=== PATIENT | female | born 2000 | race Caucasian/White ===

== ENCOUNTER 2020-07-17 11:04 | Observation (INO) | payer OTHER ==
[2020-07-17 11:46] LABS: #Monocytes 1.5 10x3/uL (0.0-1.1); %Basophils 0.3 % (0.0-2.0); %Eosinophils 0.2 % (0.0-6.0); %Lymphocytes 17.7 % (18.0-47.0); %Monocytes 14.4 % (0.0-10.0); %Neutrophils 67.1 % (40.0-75.0); Hemoglobin 14.4 g/dL (12.0-15.5); Mean Corpuscular HGB CONC 32.8 g/dL (32.0-36.0); Mean Corpuscular Hemoglobin 27.4 pg (27.0-33.0); Mean Corpuscular Volume 83.5 fl (81.6-98.3); Mean Platelet Volume 12.8 fl (7.4-10.4); Platelet Count 234 10x3/uL (150-450); RBC Distribution Width 15.2 % (11.5-14.5); Red Blood Cell (RBC) Count 5.26 10x6/uL (3.90-5.03); White Blood Cell (WBC) Count 10.5 10x3/uL (3.5-10.5)
[2020-07-17 12:00] LABS: ALT (SGPT) 386 U/L (8-55); AST (SGOT) 190 U/L (5-34); Acetaminophen Less than 6.0 mcg/mL (10.0-30.0); Albumin 4.4 g/dL (3.5-5.0); Alcohol Less than 10 mg/dL (Less than 10); Alkaline Phosphatase 84 U/L (40-100); Anion Gap 20 mmol/L (10-20); BUN (Urea Nitrogen) 7 mg/dL (7.0-18.7); Bilirubin, Total 4.4 mg/dL (0.2-1.2); Calc. Creatinine Clearance 0 mL/min (70-130); Calcium 10.2 mg/dL (7.8-10.44); Carbon Dioxide 25 mmol/L (22-29); Chloride 91 mmol/L (98-107); Globulin 3.4 g/dL (2.4-3.5); Glucose 100 mg/dL (70-105); Lipase 18 U/L (8-78); Protein, Total 7.8 g/dL (6.0-8.3); Salicylate Less than 8.0 mg/dL (15.0-30.0); Sodium 133 mmol/L (136-145)
[2020-07-17 12:07] LABS: Potassium 2.5 mmol/L (3.5-5.1)
[2020-07-17] MEDS ORDERED: Metoclopramide HCl 10 MG/2 ML VIAL ONE (12:14)
[2020-07-17 12:17] LABS: Thyroid Stimulating Hormone 0.0213 uIU/mL (0.35-4.94)
[2020-07-17] MEDS ORDERED: NS 0.9% w/ 40 MEQ KCL 1,000 ML IV ONE (12:21)
[2020-07-17 12:35] LABS: HCG, Total Quant 114125.61 mIU/mL (See Ranges)
[2020-07-17 12:50] LABS: Bilirubin 3+ (Negative); Blood, Urine 10 (Negative); Clarity Slightly Cloudy (Clear); Glucose, Urine (Dipstick) 100 mg/dL (Negative); Ketone, Urine 150 mg/dL (Negative); Leukocyte 25 (Negative); Nitrite Positive (Negative); Protein, Urine (Dipstick) 30 mg/dl (Neg-Trace)
[2020-07-17 12:57] LABS: Amphetamine Not Detected (NotDetected); Barbiturates Screen Not Detected (NotDetected); Benzodiazepine Screen Not Detected (NotDetected); Cocaine Metabolite Screen Not Detected (NotDetected); Methadone Not Detected (NotDetected); Methamphetamine Not Detected (NotDetected); Opiate Screen Not Detected (NotDetected); Oxycodone Screen Not Detected (NotDetected); Phencyclidine (PCP) Not Detected (NotDetected); THC/Cannabinoid Screen Detected (NotDetected); Tricyclic Screen Not Detected (NotDetected)
[2020-07-17 13:05] LABS: Bacteria/HPF 2+ HPF (None Seen); Mucous/LPF Few LPF (<2+); RBC/HPF 0-3 HPF (0-3); WBC/HPF 0-3 HPF (0-3)
[2020-07-17] MEDS ORDERED: cefTRIAXone\\ROCEPHIN 1 GM VIAL ONE (13:30)
[2020-07-17] MEDS ORDERED: Ondansetron PF 4 MG/2 ML Vial IVP PRN (14:14)
[2020-07-17] MEDS ORDERED: Acetaminophen 325 MG TAB PO PRN (14:14)
[2020-07-17] MEDS ORDERED: Acetaminophen 650 MG Suppository PR PRN (14:14)
[2020-07-17] MEDS ORDERED: Sodium Chloride 0.9% 1,000 ML IV SCH (14:15)
[2020-07-17] MEDS ORDERED: Metoclopramide HCl 10 MG/2 ML VIAL IVP PRN (14:45)
[2020-07-17] MEDS ORDERED: Acetaminophen 325 MG TAB ONE (17:08)
[2020-07-17] MEDS ORDERED: Doxylamine 25 MG TAB PO SCH (18:00)
[2020-07-17] MEDS ORDERED: pyridOXINE 50 MG (B6) TAB PO SCH (18:00)
[2020-07-17] MEDS ORDERED: Ondansetron ODT 4 MG TAB ONE (18:56)
[2020-07-17 19:56] VITALS: BMI 28.6
[2020-07-17] MEDS ORDERED: Potassium Chloride 20 MEQ/100 ML PREMIX BAG ONE (20:43)
[2020-07-17] MEDS: Potassium Chloride 20 MEQ in Premix Bag 1 BAG IVPB SCH ×3 (20:45→22:00)
[2020-07-17] MEDS ORDERED: Famotidine/PF 20 mg/2ml Vial SLOW IVP PRN (21:00)
[2020-07-17] MEDS: Dextrose 5 % And 0.9 % NaCl 1,000 ML IV SCH (21:25)
[2020-07-17] MEDS: Famotidine 20 MG TAB PO SCH (21:56)
[2020-07-18] MEDS: Potassium Chloride 20 MEQ in Premix Bag 1 BAG IVPB SCH ×3 (02:43→04:03)
[2020-07-18] MEDS ORDERED: Potassium Chloride 20 MEQ TAB PO SCH (03:00)
[2020-07-18] MEDS: Dextrose 5 % And 0.9 % NaCl 1,000 ML IV SCH (05:54)
[2020-07-18] MEDS: pyridOXINE 50 MG (B6) TAB PO SCH ×3 (05:54→19:52)
[2020-07-18] MEDS: Doxylamine 25 MG TAB PO SCH ×3 (05:54→19:52)
[2020-07-18] MEDS: Famotidine 20 MG TAB PO SCH (08:23)
[2020-07-18] MEDS ORDERED: cefTRIAXone\\ROCEPHIN 2 GM in Sodium Chloride 0.9% 100 ML IVPB SCH (09:00)
[2020-07-18 10:23] LABS: ALT (SGPT) 286 U/L (8-55); AST (SGOT) 134 U/L (5-34); Albumin 3.2 g/dL (3.5-5.0); Alkaline Phosphatase 61 U/L (40-100); Anion Gap 13 mmol/L (10-20); BUN (Urea Nitrogen) Less than 4 mg/dL (7.0-18.7); Bilirubin, Total 2.5 mg/dL (0.2-1.2); Calc. Creatinine Clearance 163 mL/min (70-130); Calcium 8.7 mg/dL (7.8-10.44); Carbon Dioxide 20 mmol/L (22-29); Chloride 107 mmol/L (98-107); Glucose 97 mg/dL (70-105); Potassium 3.7 mmol/L (3.5-5.1); Protein, Total 5.2 g/dL (6.0-8.3); Sodium 136 mmol/L (136-145)
[2020-07-18] MEDS: Ondansetron ODT 4 MG TAB PO PRN ×2 (10:53→19:52)
[2020-07-18] MEDS ORDERED: Lactated Ringer's 1,000 ML IV SCH (11:45)
[2020-07-18 14:28] LABS: SARS-CoV-2 PCR by NAA Not Detected (NotDetected)
[2020-07-18] MEDS ORDERED: Metoclopramide 10 MG/10 ML UDCUP PO SCH (17:00)
[2020-07-18 20:04] VITALS: BP 136/81; TEMP 98.3
== END 2020-07-18 21:40 | disposition home or self-care (01) ==
LOC: CSHERS 11:04 → CSHERHOLD 19:40 → CSHTELE 19:42 → CSHPP 07-18 13:35
PROVIDERS: ADMIT Obstetrics & Gynecology; ATTEND Obstetrics & Gynecology
DX: O21.1 Hyperemesis gravidarum with metabolic disturbance (principal); O23.41 Unspecified infection of urinary tract in pregnancy, first trimester; O99.611 Diseases of the digestive system complicating pregnancy, first trimester; K80.20 Calculus of gallbladder without cholecystitis without obstruction; O99.891 Other specified diseases and conditions complicating pregnancy; R45.851 Suicidal ideations; R10.11 Right upper quadrant pain; Z3A.10 10 weeks gestation of pregnancy; Z79.899 Other long term (current) drug therapy; Z88.0 Allergy status to penicillin; Z88.2 Allergy status to sulfonamides; Z91.040 Latex allergy status; Z91.048 Other nonmedicinal substance allergy status
CPT/HCPCS: 36415; 76705; 80053; 80306; 80307; 81003; 81015; 83690; 84439; 84443; 84702; 85025; 87040; 87086; 87635; 93005; 96365; 96366; 96367; 96375; 96376; G0378; J0696; J2405; J2765; J3480; J3490; J7120; Q0162; U0003; U0005

== ENCOUNTER 2021-01-17 12:04 | Inpatient (IN) | payer OTHER ==
[2021-01-17 12:41] VITALS: BMI 28.3
[2021-01-17] MEDS ORDERED: hydrALAZINE 20 MG/ML VIAL SLOW IVP PRN (12:51)
[2021-01-17] MEDS ORDERED: Promethazine HCl 25 MG/ML VIAL IM PRN ×2 (13:23→20:45)
[2021-01-17] MEDS ORDERED: Ondansetron PF 4 MG/2 ML Vial IVP PRN ×2 (13:23→20:45)
[2021-01-17] MEDS ORDERED: Lactated Ringer's 1,000 ML IV SCH (13:30)
[2021-01-17] MEDS ORDERED: CEFAZOLIN 2 GM in Premix Bag 1 BAG IVPB ONE (13:31)
[2021-01-17 13:59] LABS: Mean Corpuscular HGB CONC 32.4 g/dL (32.0-36.0); Mean Corpuscular Hemoglobin 27.4 pg (27.0-33.0); Mean Corpuscular Volume 84.8 fl (81.6-98.3); Mean Platelet Volume 12.8 fl (7.4-10.4); Platelet Count 277 10x3/uL (150-450); RBC Distribution Width 14.1 % (11.5-14.5); Red Blood Cell (RBC) Count 4.01 10x6/uL (3.90-5.03); White Blood Cell (WBC) Count 16.6 10x3/uL (3.5-10.5)
[2021-01-17] MEDS ORDERED: Methylergonovine 0.2 MG/ML VIAL IM PRN (14:00)
[2021-01-17] MEDS ORDERED: Carboprost 250 MCG/ML AMP IM PRN (14:00)
[2021-01-17] MEDS ORDERED: NS w/ Oxytocin 30 units 500 ML IV SCH (14:00)
[2021-01-17] MEDS ORDERED: Ibuprofen 800 MG TAB PO PRN (14:00)
[2021-01-17] MEDS ORDERED: Lidocaine 1% (PF) 30 ML VIAL SC PRN (14:00)
[2021-01-17] MEDS ORDERED: Misoprostol 200 MCG TAB PR PRN (14:00)
[2021-01-17] MEDS: Betamet Acet/Betamet Na Ph 30 MG/5 ML VIAL IM SCH (14:06)
[2021-01-17 14:30] LABS: Hep B Surf Ag Non-Reactive S/CO (NonReactive)
[2021-01-17 14:32] LABS: Syphilis Antibody Index 1.78 S/CO (<1.00 Non-Reactive)
[2021-01-17 14:35] LABS: Bilirubin Neg (Negative); Blood, Urine Negative (Negative); Clarity Clear (Clear); Glucose, Urine (Dipstick) Normal (Negative); Ketone, Urine 5 mg/dL (Negative); Leukocyte Negative (Negative); Nitrite Negative (Negative); Protein, Urine (Dipstick) Negative (Neg-Trace); Urobilinogen Normal mg/dL (Less than 2)
[2021-01-17 14:44] LABS: Amphetamine Not Detected (NotDetected); Barbiturates Screen Not Detected (NotDetected); Benzodiazepine Screen Not Detected (NotDetected); Cocaine Metabolite Screen Not Detected (NotDetected); Methadone Not Detected (NotDetected); Methamphetamine Not Detected (NotDetected); Opiate Screen Not Detected (NotDetected); Oxycodone Screen Not Detected (NotDetected); Phencyclidine (PCP) Not Detected (NotDetected); THC/Cannabinoid Screen Detected (NotDetected); Tricyclic Screen Not Detected (NotDetected)
[2021-01-17 14:48] LABS: RBC/HPF 0-3 HPF (0-3); Renal Epithelial 0-3 HPF (None Seen); Squamous Epithelial 0-3 HPF (0-3); WBC/HPF 0-3 HPF (0-3)
[2021-01-17 14:49] LABS: Bacteria/HPF 1+ HPF (None Seen)
[2021-01-17 15:22] LABS: Syphilis Antibody INDETERMINATE (Nonreactive)
[2021-01-17 15:25] LABS: HBSAg Index 0.23 S/CO (0-0.99)
[2021-01-17 15:28] LABS: HIV (1/2) Antibody/Antigen Non-Reactive (NonReactive); HIV 1/2 INDEX 0.06 S/CO (<1.00)
[2021-01-17] MEDS ORDERED: Fentanyl 2 mcg/Bup 0.1% Cadd 100 ML ONE (15:42)
[2021-01-17 16:18] LABS: SARS-CoV-2 NAA Rapid Test Not Detected (NotDetected)
[2021-01-17 16:23] LABS: ALT (SGPT) 9 U/L (8-55); AST (SGOT) 12 U/L (5-34); Albumin 3.4 g/dL (3.5-5.0); Alkaline Phosphatase 152 U/L (40-110); Anion Gap 18 mmol/L (10-20); BUN (Urea Nitrogen) 4 mg/dL (7.0-18.7); Bilirubin, Total 0.6 mg/dL (0.2-1.2); Calc. Creatinine Clearance 136 mL/min (70-130); Calcium 9.6 mg/dL (7.8-10.44); Carbon Dioxide 17 mmol/L (22-29); Chloride 105 mmol/L (98-107); Globulin 3.3 g/dL (2.4-3.5); Glucose 74 mg/dL (70-105); Potassium 3.9 mmol/L (3.5-5.1); Protein, Total 6.7 g/dL (6.0-8.3); Sodium 136 mmol/L (136-145)
[2021-01-17 16:26] LABS: Creatinine, Urine 45.28 mg/dL (47-110); Protein, Urine Random Quant Less than 10 mg/dL (1-14)
[2021-01-17 17:26] LABS: HBSAB Concentration Less than 8.00 mIU/mL; Hep B Surf AB Non-Reactive (NonReactive)
[2021-01-17] MEDS ORDERED: Acetaminophen 325 MG TAB PO PRN (20:45)
[2021-01-17] MEDS ORDERED: Naloxone HCl 0.4 mg/ml Vial IVP PRN ×2 (20:45)
[2021-01-17] MEDS ORDERED: diphenhydrAMINE 50 MG/ML VIAL IVP PRN (20:45)
[2021-01-17] MEDS ORDERED: Lactated Ringer's 500 ML IV PRN (20:45)
[2021-01-17] MEDS ORDERED: ePHEDrine Sulfate 50 MG/10 ML VIAL SLOW IVP PRN (20:45)
[2021-01-17] MEDS ORDERED: Hydrocerin (Eucerin) Cream 120 gm Jar TOP PRN (20:45)
[2021-01-17] MEDS ORDERED: Communication Order-Pharmacy FS SCH (20:45)
[2021-01-17] MEDS ORDERED: Fentanyl 2 mcg/Bupivacaine 0.1% Cassette 100 ML EPIDURAL SCH (20:45)
[2021-01-17] MEDS: CEFAZOLIN 1 GM in Sodium Chloride 0.9% 100 ML IVPB SCH (22:26)
[2021-01-18] MEDS ORDERED: Fentanyl 2 mcg/Bup 0.1% Cadd 100 ML ONE ×2 (00:50→09:19)
[2021-01-18] MEDS ORDERED: Methylergonovine 0.2 MG/ML VIAL ONE (06:05)
[2021-01-18] MEDS: CEFAZOLIN 1 GM in Sodium Chloride 0.9% 100 ML IVPB SCH (07:03)
[2021-01-18] MEDS: Betamet Acet/Betamet Na Ph 30 MG/5 ML VIAL IM SCH (14:00)
[2021-01-19 20:49] LABS: Chlamydia by PCR Not Detected (NotDetected); GC by PCR Not Detected (NotDetected)
== END 2021-01-18 16:02 | disposition home or self-care (01) | DRG 832 ==
LOC: CSHLD/OP 12:04 → CSHLD 15:26
PROVIDERS: ADMIT Obstetrics & Gynecology; ATTEND Obstetrics & Gynecology
DX: O60.03 Preterm labor without delivery, third trimester (principal); O99.323 Drug use complicating pregnancy, third trimester; Z3A.36 36 weeks gestation of pregnancy; O62.1 Secondary uterine inertia; Z20.822 Contact with and (suspected) exposure to COVID-19; Z67.11 Type A blood, Rh negative; F12.90 Cannabis use, unspecified, uncomplicated; F17.210 Nicotine dependence, cigarettes, uncomplicated; O99.333 Smoking (tobacco) complicating pregnancy, third trimester; O09.33 Supervision of pregnancy with insufficient antenatal care, third trimester; Z88.2 Allergy status to sulfonamides; Z88.0 Allergy status to penicillin; Z91.040 Latex allergy status
CPT/HCPCS: 80053; 80306; 81001; 82570; 84156; 85027; 86593; 86694; 86695; 86696; 86706; 86762; 86780; 86850; 86900; 86901; 87340; 87389; 87480; 87491; 87510; 87591; 87660; 99285; J0690; J0702; J2405; J3490; J7120; U0002

== ENCOUNTER 2021-01-21 07:21 | Day surgery (SDC) | payer OTHER ==
[2021-01-21 07:53] VITALS: BMI 28.3
[2021-01-21] MEDS ORDERED: hydrALAZINE 20 MG/ML VIAL SLOW IVP PRN (08:41)
[2021-01-21] MEDS ORDERED: Morphine 4 MG/ML VIAL SLOW IVP PRN (08:48)
== END 2021-01-21 11:40 | disposition home or self-care (01) ==
LOC: CSHLD/OP 07:21
PROVIDERS: ATTEND Obstetrics & Gynecology
DX: O47.1 False labor at or after 37 completed weeks of gestation (principal); O99.323 Drug use complicating pregnancy, third trimester; F12.90 Cannabis use, unspecified, uncomplicated; Z3A.37 37 weeks gestation of pregnancy; Z87.59 Personal history of other complications of pregnancy, childbirth and the puerperium; Z88.0 Allergy status to penicillin; Z88.2 Allergy status to sulfonamides; Z91.040 Latex allergy status
CPT/HCPCS: 96360; 96361; 96375; 99282; J2270

== ENCOUNTER 2021-01-23 07:33 | Inpatient (IN) | payer OTHER ==
[2021-01-23] MEDS ORDERED: hydrALAZINE 20 MG/ML VIAL SLOW IVP PRN ×3 (08:39→11:21)
[2021-01-23] MEDS ORDERED: Lactated Ringer's 1,000 ML IV SCH ×3 (08:45→10:00)
[2021-01-23] MEDS ORDERED: Butorphanol Tartrate 1 MG/ML VIAL ONE (09:12)
[2021-01-23] MEDS ORDERED: Fentanyl 2 mcg/Bup 0.1% Cadd 100 ML ONE (09:21)
[2021-01-23] MEDS ORDERED: NS w/ Oxytocin 30 units 500 ML ONE ×2 (09:32)
[2021-01-23] MEDS ORDERED: Lidocaine 1% (PF) 30 ML VIAL ONE (09:32)
[2021-01-23] MEDS ORDERED: Ibuprofen 800 MG TAB PO PRN (09:55)
[2021-01-23] MEDS ORDERED: HYDROcodone/Acetaminophen 5/325 mg Tablet PO PRN ×4 (09:55→11:21)
[2021-01-23] MEDS ORDERED: Butorphanol Tartrate 1 MG/ML VIAL SLOW IVP PRN (09:55)
[2021-01-23] MEDS ORDERED: Lidocaine 1% (PF) 30 ML VIAL SC PRN (09:55)
[2021-01-23] MEDS ORDERED: Promethazine HCl 25 MG/ML VIAL IM PRN ×2 (09:55→11:21)
[2021-01-23] MEDS ORDERED: Ondansetron PF 4 MG/2 ML Vial IVP PRN ×2 (09:55→11:21)
[2021-01-23] MEDS ORDERED: NS w/ Oxytocin 30 units 500 ML IV SCH ×3 (10:00→11:21)
[2021-01-23 10:19] LABS: Hemoglobin 10.6 g/dL (12.0-15.5); Mean Corpuscular HGB CONC 31.7 g/dL (32.0-36.0); Mean Corpuscular Hemoglobin 26.2 pg (27.0-33.0); Mean Corpuscular Volume 82.5 fl (81.6-98.3); Mean Platelet Volume 13.2 fl (7.4-10.4); Platelet Count 342 10x3/uL (150-450); RBC Distribution Width 14.3 % (11.5-14.5); Red Blood Cell (RBC) Count 4.05 10x6/uL (3.90-5.03); White Blood Cell (WBC) Count 17.3 10x3/uL (3.5-10.5)
[2021-01-23 10:54] VITALS: BMI 28.3
[2021-01-23 10:59] LABS: Hep B Surf Ag Non-Reactive S/CO (NonReactive)
[2021-01-23 11:07] LABS: Syphilis Antibody Index 1.82 S/CO (<1.00 Non-Reactive)
[2021-01-23 11:16] LABS: HBSAg Index 0.26 S/CO (0-0.99)
[2021-01-23] MEDS ORDERED: Boostrix 0.5 ML (Tdap) VIAL IM ONE (11:21)
[2021-01-23] MEDS ORDERED: Bisacodyl 10 MG SUPP PR PRN (11:21)
[2021-01-23] MEDS ORDERED: Methylergonovine 0.2 MG/ML VIAL IM PRN (11:21)
[2021-01-23] MEDS ORDERED: Lanolin Ointment 7 GM TUBE TOP PRN (11:21)
[2021-01-23] MEDS ORDERED: Zolpidem Tartrate 5 MG TAB PO PRN (11:21)
[2021-01-23] MEDS ORDERED: Misoprostol 200 MCG TAB VAG PRN (11:21)
[2021-01-23] MEDS ORDERED: diphenhydrAMINE 25 MG CAP PO PRN (11:21)
[2021-01-23] MEDS ORDERED: Milk Of Magnesia 30 ML UDCUP PO PRN (11:21)
[2021-01-23] MEDS ORDERED: Benzocaine-Menthol 82.5 ML CAN TOP PRN (11:21)
[2021-01-23] MEDS: Ibuprofen 800 MG TAB PO SCH ×2 (14:14→21:26)
[2021-01-23 16:56] LABS: Syphilis Antibody INDETERMINATE (Nonreactive)
[2021-01-23] MEDS: Docusate Calcium (SURFAK) 240 MG CAP PO SCH (21:26)
[2021-01-24] MEDS: Ibuprofen 800 MG TAB PO SCH ×3 (04:37→21:02)
[2021-01-24] MEDS: Docusate Calcium (SURFAK) 240 MG CAP PO SCH ×2 (09:28→21:02)
[2021-01-24] MEDS: Prenatal Vitamin 1 TAB PO SCH (09:28)
[2021-01-25] MEDS: Ibuprofen 800 MG TAB PO SCH (04:49)
[2021-01-25 07:42] VITALS: BP 126/82; TEMP 97.8
[2021-01-25] MEDS: Docusate Calcium (SURFAK) 240 MG CAP PO SCH (08:04)
[2021-01-25] MEDS: Prenatal Vitamin 1 TAB PO SCH (08:04)
== END 2021-01-25 11:20 | disposition home or self-care (01) | DRG 807 ==
LOC: CSHLD/OP 07:33 → CSHLD 09:00 → CSHPP 11:50
PROVIDERS: ADMIT Obstetrics & Gynecology; ATTEND Obstetrics & Gynecology
PROC: 10E0XZZ Delivery of Products of Conception, External Approach (ICD-10-PCS; principal; 2021-01-23)
PROC: 0KQM0ZZ Repair Perineum Muscle, Open Approach (ICD-10-PCS; 2021-01-23)
DX: O70.1 Second degree perineal laceration during delivery (principal); Z37.0 Single live birth; Z3A.37 37 weeks gestation of pregnancy; Z88.2 Allergy status to sulfonamides; Z88.0 Allergy status to penicillin; Z91.040 Latex allergy status; Z67.11 Type A blood, Rh negative; F17.210 Nicotine dependence, cigarettes, uncomplicated; O99.334 Smoking (tobacco) complicating childbirth
CPT/HCPCS: 85027; 86593; 86780; 86850; 86900; 86901; 87081; 87340; 99285; J0595; J0690; J2001; J2590; J7120

== ENCOUNTER 2023-08-01 20:36 | Inpatient (IN) | payer MEDICAID ==
[2023-08-01 21:17] VITALS: BMI 33.2
[2023-08-01] MEDS ORDERED: hydrALAZINE 20 MG/ML VIAL SLOW IVP PRN ×2 (21:22→23:18)
[2023-08-01] MEDS ORDERED: Misoprostol 200 MCG TAB PR PRN (23:18)
[2023-08-01] MEDS ORDERED: Lidocaine 1% (PF) 30 ML VIAL SC PRN (23:18)
[2023-08-01] MEDS ORDERED: Methylergonovine 0.2 MG/ML VIAL IM PRN (23:18)
[2023-08-01] MEDS ORDERED: Carboprost 250 MCG/ML AMP IM PRN (23:18)
[2023-08-01] MEDS ORDERED: Diphenoxylate HCl/Atropine Tablet PO PRN (23:18)
[2023-08-01] MEDS ORDERED: Promethazine HCl 25 MG/ML VIAL IM PRN (23:18)
[2023-08-01] MEDS ORDERED: Ondansetron PF 4 MG/2 ML Vial IVP PRN (23:18)
[2023-08-01] MEDS ORDERED: Acetaminophen 500 MG TAB PO PRN (23:18)
[2023-08-01] MEDS ORDERED: Tranexamic Acid 1,000 MG/10 ML VIAL IVP PRN (23:18)
[2023-08-01] MEDS ORDERED: Lactated Ringer's 1,000 ML IV SCH (23:30)
[2023-08-01] MEDS ORDERED: Oxytocin 30 units/NS 500 ML 500 ML IV SCH ×3 (23:30)
[2023-08-02 00:14] LABS: Hematocrit 29.9 % (34.9-44.5); Hemoglobin 9.2 g/dL (12.0-15.5); Mean Corpuscular HGB CONC 30.8 g/dL (32.0-36.0); Mean Corpuscular Hemoglobin 23.2 pg (27.0-33.0); Mean Corpuscular Volume 75.3 fL (81.6-98.3); Mean Platelet Volume 11.4 fL (7.4-10.4); Platelet Count 204 10x3/uL (150-450); RBC Distribution Width 16.8 % (11.5-14.5); Red Blood Cell (RBC) Count 3.97 10x6/uL (3.90-5.03); White Blood Cell (WBC) Count 10.7 10x3/uL (3.5-10.5)
[2023-08-02 00:58] LABS: HBsAg Index 0.28 S/CO (0-0.99); Hep B Surf Ag - L&D Non-Reactive S/CO (NonReactive)
[2023-08-02 01:46] LABS: Syphilis Antibody Index 1.37 S/CO (<1.00 Non-Reactive)
[2023-08-02 01:49] LABS: Syphilis Antibody INDETERMINATE (Nonreactive); Syphilis Titer Non-Reactive Titer (Negative)
[2023-08-02] MEDS ORDERED: Lactated Ringer's 500 ML IV PRN (02:03)
[2023-08-02] MEDS ORDERED: ePHEDrine Sulfate 50 MG/10 ML VIAL SLOW IVP PRN (02:03)
[2023-08-02] MEDS ORDERED: Ondansetron PF 4 MG/2 ML Vial IVP PRN ×2 (02:03→13:45)
[2023-08-02] MEDS ORDERED: Acetaminophen 325 MG TAB PO PRN (02:03)
[2023-08-02] MEDS ORDERED: diphenhydrAMINE 50 MG/ML VIAL IVP PRN (02:03)
[2023-08-02] MEDS ORDERED: Promethazine HCl 25 MG/ML VIAL IM PRN ×2 (02:03→13:45)
[2023-08-02] MEDS ORDERED: Moisturizing Cream (Eucerin) 113 GM JAR TOP PRN (02:03)
[2023-08-02] MEDS ORDERED: Naloxone HCl 0.4 mg/ml Vial IVP PRN ×2 (02:03)
[2023-08-02] MEDS ORDERED: Communication Order-Pharmacy FS SCH (02:15)
[2023-08-02] MEDS ORDERED: fentaNYL 2 mcg/Ropivacaine 0.2% Epidural 100 ML CADD EPIDURAL SCH (02:15)
[2023-08-02] MEDS: Oxytocin 30 units/NS 500 ML 500 ML IV SCH (08:26)
[2023-08-02] MEDS ORDERED: Milk Of Magnesia 30 ML UDCUP PO PRN (13:45)
[2023-08-02] MEDS ORDERED: Bisacodyl 10 MG SUPP PR PRN (13:45)
[2023-08-02] MEDS ORDERED: hydrALAZINE 20 MG/ML VIAL SLOW IVP PRN (13:45)
[2023-08-02] MEDS ORDERED: Preparation H Ointment 28 GM TUBE PR PRN (13:45)
[2023-08-02] MEDS ORDERED: diphenhydrAMINE 25 MG CAP PO PRN (13:45)
[2023-08-02] MEDS ORDERED: Lanolin Ointment 7 GM TUBE TOP PRN (13:45)
[2023-08-02] MEDS ORDERED: HYDROcodone/Acetaminophen 5/325 mg Tablet PO PRN ×2 (13:45)
[2023-08-02] MEDS ORDERED: Benzocaine-Menthol 82.5 ML CAN TOP PRN (13:45)
[2023-08-02] MEDS ORDERED: Bupivacaine 0.25% HCL 30 ML VIAL ONE (14:00)
[2023-08-02] MEDS: Ibuprofen 800 MG TAB PO SCH (14:05)
[2023-08-02] MEDS: Boostrix 0.5 ML (Tdap) VIAL (>/=7 yrs of age) IM ONE (15:15)
[2023-08-02] MEDS: Phytonadione Neonatal 1 MG/0.5 ML AMP ONE (15:15)
[2023-08-02] MEDS: fentaNYL/Ropivacaine Epidural 100 ML ONE (15:15)
[2023-08-02] MEDS: Hepatitis B Vaccine 10 MCG/0.5 ML SYR ONE (15:15)
[2023-08-02] MEDS: Erythromycin Base 0.5% Oint 1 GM TUBE ONE (15:15)
[2023-08-02] MEDS: Ferrous Sulfate 325 MG TAB PO SCH (17:25)
[2023-08-02] MEDS: Docusate 100 MG CAP PO SCH (21:48)
[2023-08-03] MEDS: Prenatal Vitamin 1 TAB PO SCH (07:57)
[2023-08-03 11:59] VITALS: BP 133/81; TEMP 97.8
== END 2023-08-03 13:30 | disposition home or self-care (01) | DRG 807 ==
LOC: CSHLD/OP 20:36 → CSHLD 23:26 → EEVIPCON 23:26 → CSHPP 08-02 14:58
PROVIDERS: ADMIT Student in an Organized Health Care Education/Training Program; ATTEND Student in an Organized Health Care Education/Training Program
PROC: 10E0XZZ Delivery of Products of Conception, External Approach (ICD-10-PCS; principal; 2023-08-02)
PROC: 10907ZC Drainage of Amniotic Fluid, Therapeutic from Products of Conception, Via Natural or Artificial Opening (ICD-10-PCS; 2023-08-02)
DX: O80 Encounter for full-term uncomplicated delivery (principal); Z37.0 Single live birth; Z3A.37 37 weeks gestation of pregnancy; Z79.899 Other long term (current) drug therapy; Z88.0 Allergy status to penicillin; Z88.2 Allergy status to sulfonamides; Z91.040 Latex allergy status
CPT/HCPCS: 36415; 51702; 85027; 86593; 86780; 86850; 86870; 86900; 86901; 87340; 99285; J0665; J2590